=== PATIENT | female | born 1960 ===

== ENCOUNTER 2025-05-22 19:54 | Emergency (ER) | payer MEDICAID ==
[~2025-05-22] VITALS: Ht 152.4 cm; Wt 41.7 kg
[2025-05-22] MEDS ORDERED: AMLO-212 PO (20:19)
[2025-05-22 20:42] LABS: PLATELET COUNT (AUTO) 275 K/uL (179-408); RED BLOOD CELL COUNT(AUTO) 4.02 MIL/uL (3.63-4.92); RED CELL DISTRIBUTION WIDTH 13.2 % (12.3-17.7); WHITE BLOOD COUNT (AUTO) 8.7 K/uL (3.8-11.8)
[2025-05-22 20:52] LABS: CREATININE 1.0 mg/dL (0.6-1.3); SODIUM SERUM 143.0 mmol/L (136-145); UREA NITROGEN, BLOOD 22.0 mg/dL (7-18)
[2025-05-22 20:58] LABS: ASPARTATE AMINOTRANSFERASE 36.0 U/L (15-37); TOTAL PROTEIN, SERUM 7.7 g/dL (6.4-8.2)
[2025-05-22] MEDS: IV NS 1000 ML 1,000 ML IV ONE (21:57)
[2025-05-22] MEDS ORDERED: DEXAMETHASONE 4 MG TABLET ONE (22:59)
[2025-05-22] MEDS: DEXAMETHASONE 4 MG TABLET PO ONE (23:05)
[2025-05-23] VITALS: BP 158/78; O2SAT 98
== END 2025-05-23 01:00 | disposition short-term general hospital (02) ==
LOC: ER 19:54
DX: S09.90XA Unspecified injury of head, initial encounter (principal); I10 Essential (primary) hypertension; I49.1 Atrial premature depolarization; G93.6 Cerebral edema; M47.812 Spondylosis without myelopathy or radiculopathy, cervical region; R06.02 Shortness of breath; R29.6 Repeated falls; R62.7 Adult failure to thrive; Z60.2 Problems related to living alone; Z88.7 Allergy status to serum and vaccine; X58.XXXA Exposure to other specified factors, initial encounter; Y93.89 Activity, other specified; Y92.89 Other specified places as the place of occurrence of the external cause; Y99.8 Other external cause status
CPT/HCPCS: 99291; 70450; 80053; 83880; 83735; 85025; 84484; 36415; 71045; 73070; 72125; 93005; J8540; J7040; A4606; A4663